=== PATIENT | female | born 1990 | race Caucasian/White ===

== ENCOUNTER 2020-06-25 11:55 | Outpatient (CLI) | payer OTHER, SELFPAY ==
[2020-06-25 12:28] LABS: Basophils Percent Auto 0.6 % (0.2-1.2); Eosinophils Absolute Auto 0.1 K/mm3 (0-0.3); Hematocrit 38.9 % (37.0-47.0); Immature Granulocyte Absolute 0.01 K/mm3 (0.00-0.031); Immature Granulocyte Percent A 0.2 % (0-0.5); Lymphocytes Absolute Auto 1.48 K/mm3 (0.9-3.2); Lymphocytes Percent Auto 28.8 % (18.3-44.2); Mean Corpuscular HGB Conc 33.4 g/dl (32-36); Mean Corpuscular Hemoglobin 31.6 pg (26-34); Mean Corpuscular Volume 94.6 fl (80-100); Mean Platelet Volume 9.9 fl (7.4-10.4); Monocytes Absolute Auto 0.5 K/mm3 (0.1-0.6); Neutrophils Absolute Auto 3.1 K/mm3 (1.3-6.7); Neutrophils Percent Auto 60.4 % (45.5-73.1); Platelet Count Result 258 k/mm3 (150-375); Red Blood Count 4.11 M/mm3 (4.2-5.4); Red Cell Distribution Width 12.8 % (11.5-14.5); White Blood Count 5.1 K/mm3 (4.5-10.0)
[2020-06-25 12:56] LABS: Beta HCG Quantitative 57.77 mIU/ML
[2020-06-25 13:20] LABS: Free T4 Free Thyroxine 1.08 ng/mL (0.78-2.19)
== END 2020-06-25 11:56 | disposition home or self-care (01) ==
LOC: ANHLAB 11:58
PROVIDERS: Visit Provider Obstetrics & Gynecology
DX: N92.6 Irregular menstruation, unspecified (principal)
CPT/HCPCS: 36415; 84146; 84439; 84443; 84702; 85025

== ENCOUNTER 2020-06-27 13:49 | Outpatient (CLI) | payer OTHER, SELFPAY ==
[2020-06-27 14:42] LABS: Beta HCG Quantitative 30.82 mIU/ML
== END 2020-06-27 13:50 | disposition home or self-care (01) ==
PROVIDERS: Visit Provider Obstetrics & Gynecology
DX: N92.6 Irregular menstruation, unspecified (principal)
CPT/HCPCS: 36415; 84702

== ENCOUNTER 2020-07-02 14:52 | Outpatient (CLI) | payer OTHER, SELFPAY ==
[2020-07-02 16:10] LABS: Beta HCG Quantitative 7.96 mIU/ML
== END 2020-07-02 14:53 | disposition home or self-care (01) ==
PROVIDERS: Visit Provider Obstetrics & Gynecology
DX: N92.6 Irregular menstruation, unspecified (principal); Z34.90 Encounter for supervision of normal pregnancy, unspecified, unspecified trimester
CPT/HCPCS: 36415; 84702; 86850; 86900; 86901

== ENCOUNTER 2020-07-06 13:35 | Outpatient (CLI) | payer OTHER, SELFPAY ==
--- NOTE | ~2020-07-06 | US_ITS ---
EXAMINATION: US pelvic complete w TV DATE: 07/06/2020 14:17 INDICATION: Irregular menstruation Comparison:No prior studies for comparison. TECHNIQUE: Multiple transabdominal and endovaginal sonographic images of the pelvis performed. FINDINGS: The uterus measures 7.3 x 3.7 x 5 cm. The endometrial complex measures 7 mm. There is a 7 m m nabothian cysts. The ovaries are not visualized. There is no free fluid in the pelvis. There are no abnormal masses seen on either side. IMPRESSION: 1. Unremarkable pelvic ultrasound. Reviewed, dictated and finalized at location B.
== END 2020-07-06 13:36 | disposition home or self-care (01) ==
PROVIDERS: Visit Provider Obstetrics & Gynecology
DX: N92.6 Irregular menstruation, unspecified (principal)
CPT/HCPCS: 76830; 76856

== ENCOUNTER 2020-07-16 17:18 | Outpatient (CLI) | payer OTHER, SELFPAY ==
[2020-07-16 18:00] LABS: Beta HCG Quantitative < 2.39 mIU/ML
== END 2020-07-16 17:19 | disposition home or self-care (01) ==
PROVIDERS: PCP Obstetrics & Gynecology; Visit Provider Obstetrics & Gynecology
DX: N92.6 Irregular menstruation, unspecified (principal)
CPT/HCPCS: 36415; 84702

== ENCOUNTER 2020-07-20 13:50 | Outpatient (CLI) | payer OTHER, SELFPAY ==
[2020-07-20 17:41] LABS: Hepatitis B Surface Antigen Negative (Negative)
[2020-07-20 17:59] LABS: Hepatitis C Virus Antibody Negative (Negative)
[2020-07-21 06:59] LABS: Rapid Plasma Reagin Non-Reactive (NonReactive)
[2020-07-23 13:01] LABS: HSV 1 IgM Screen Negative (Negative); HSV 2 IgM Screen Negative (Negative)
== END 2020-07-20 13:51 | disposition home or self-care (01) ==
LOC: ANHLAB 13:51
PROVIDERS: PCP Obstetrics & Gynecology; Visit Provider Obstetrics & Gynecology
DX: Z20.2 Contact with and (suspected) exposure to infections with a predominantly sexual mode of transmission (principal)
CPT/HCPCS: 36415; 86592; 86695; 86696; 86803; 87340

== ENCOUNTER 2021-10-12 11:31 | Emergency (ER) | payer OTHER, SELFPAY ==
[2021-10-12 11:41] VITALS: BP 131/77; PULSE 77; RESP 16; TEMP 37.1; O2SAT 98
--- NOTE | 2021-10-12 11:47 | ED.URI ---
HPI - URI/Sore Throat General Chief Complaint: Upper Respiratory Infection Stated Complaint: congestion Time Seen by Provider: 10/12/21 11:48 Source: patient, family, RN notes reviewed and old records reviewed Mode of arrival: ambulatory Limitations: no limitations History of Present Illness HPI Narrative: 31-year-old female presents to the [facility] with complaints of congestion. Patient states is been going on a couple of days. States it feels similar to when she had Covid 3 weeks ago. Denies fevers. Reports taking multiple [id number]-[id number] products. Related Data Allergies Allergy/AdvReac Type Severity Reaction Status Date / Time minocycline Allergy Severe ANAPHALACTI Verified 10/12/21 11:34 C Review of Systems Review of Systems: All systems reviewed & are unremarkable except as noted in HPI and below Constitutional: Constitutional: Reports no additional constitutional complaints, Denies chills, Denies fever(s) and Denies headache(s) Eyes: Eyes: Reports no additional eye complaints ENT: Reports as per HPI, Denies vertigo, Denies dizziness, Denies headache(s), Reports nasal congestion and Reports sore throat Cardiovascular: Cardiovascular: Reports no additional cardiovascular complaints, Denies chest pain, Denies syncope, Denies rapid heart rate and Denies dyspnea Respiratory: Respiratory: Reports no additional respiratory complaints, Denies cough, Denies dyspnea and Denies wheezing Gastrointestinal: Gastrointestinal: Reports no additional gastrointestinal complaints, Denies abdominal pain, Denies diarrhea, Denies nausea and Denies vomiting Musculoskeletal: Musculoskeletal: Reports no additional musculoskeletal complaints and Denies numbness Integumentary/Breasts: Skin/Breast: Reports system reviewed and no additional complaints, except as docu Neurologic: Reports system reviewed and no additional complaints, except as documented, Denies vertigo, Denies dizziness, Denies syncope, Denies headache(s), Denies focal weakness and Denies numbness Psychiatric: Psychiatric: Reports no additional psychiatric complaints Allergic/Immunologic: Allergic/Immunologic: Reports no additional allergic/immunologic complaints and Denies wheezing PMFSH Past Medical History Medical History (Updated 10/12/21 @ 12:19 by Agnelica Chacon) 2010 Asthma Depression Irregular menses Surgical History Surgical History H/O knee surgery H/O rhinoplasty H/O wisdom tooth extraction H/O wrist surgery Family History Family History Grandparent Breast cancer Diabetes mellitus Acute myocardial infarction Social History Social History Smoking status: Former smoker Smoking end date: 03/26/17 Alcohol intake: current Substance use: former Substance use type: heroin Comments At the time of my signature, I reviewed and agree with the nursing past medical, surgical, social, and family history. There is no relevant family history pertinent to the patient complaint. Exam Const: General: cooperative, healthy appearing, no acute distress, well developed and alert Nutritional Appearance: well nourished Orientation/consciousness: patient oriented x3 Limitations: no limitations HENMT: Head: normal to inspection Ears: external ears normal, TM's normal bilaterally and EAC's normal General nose exam: Normal external nose present and Normal nasal mucous membranes and turbinates present Face and sinus: normal facial exam Mouth: Yes Normal oral and palatal mucosa present Throat: tonsils normal, uvula midline, posterior oropharynx abnormal cobblestoning; no erythema and no exudates, postnasal drainage and no uvular edema Eyes: Conjunctivae: conjunctivae normal Pupils: Equal, round and reactive pupils present Neck: Neck: normal visual inspection, no lymphadenopathy and no meningeal sig
== END 2021-10-12 12:25 | disposition home or self-care (01) ==
PROVIDERS: Emergency Provider Nurse Practitioner
DX: R09.82 Postnasal drip (principal); J06.9 Acute upper respiratory infection, unspecified; Z87.891 Personal history of nicotine dependence; J45.909 Unspecified asthma, uncomplicated; Z86.16 Personal history of COVID-19
CPT/HCPCS: 87081; 87880; 99213; G0463

== ENCOUNTER 2021-12-08 17:38 | Emergency (ER) | payer OTHER, SELFPAY ==
[2021-12-08 17:45] VITALS: BP 114/70; PULSE 87; RESP 16; TEMP 36.9; O2SAT 100
--- NOTE | 2021-12-08 18:15 | ED.URI ---
HPI - URI/Sore Throat General Chief Complaint: Upper Respiratory Infection Stated Complaint: uri Time Seen by Provider: 12/08/21 18:15 Source: patient and RN notes reviewed Mode of arrival: ambulatory Limitations: no limitations History of Present Illness HPI Narrative: 31-year-old female presented for complaint of sinus pressure, congestion for 1 month and left ear pain for about 2 days. Endorses thick green nasal drainage and sore throat. She is taking lhai-ajj-unhghko nasal spray and allergy medication. History of tinnitus. Denies headache, dizziness, nausea, vomiting, diarrhea, fever or chills. Patient is not vaccinated for flu or Covid. Denies sick contacts. MD elicited complaint: nasal congestion Related Data Allergies Allergy/AdvReac Type Severity Reaction Status Date / Time minocycline Allergy Severe ANAPHALACTI Verified 12/08/21 17:43 C Review of Systems Review of Systems: CONSTITUTIONAL: Denies malaise, chills, sweats, fever EYES: Denies visual changes, redness, or discharge ENT: Reports rhinorrhea, congestion, sinus pain, otalgia, sore throat CARDIOVASCULAR: Denies chest pain, palpitations, edema RESPIRATORY: Reports cough, post nasal drainage. Denies dyspnea GASTROINTESTINAL: Denies abdominal pain, nausea, vomiting, diarrhea SKIN: Denies rash or itching MUSCULOSKELETAL: Denies myalgia NEUROLOGIC: Denies headache PMFSH Past Medical History Medical History (Updated 12/08/21 @ 18:25 by Herminia Pandya APRN) 2010 Asthma Depression Irregular menses Surgical History Surgical History H/O knee surgery H/O rhinoplasty H/O wisdom tooth extraction H/O wrist surgery Family History Family History Grandparent Breast cancer Diabetes mellitus Acute myocardial infarction Social History Social History Smoking status: Former smoker Smoking end date: 03/26/17 Alcohol intake: current Substance use: former Substance use type: heroin Exam Narrative: GENERAL: Ill-appearing, nontoxic HEAD: Normocephalic EYES: conjunctivae clear ENT: Mucous membranes moist. TM pearly bran with dull light reflex bilaterally; no tragal tenderness. Oropharynx erythematous without lesions or exudate, no drooling, no hoarseness, no trismus, uvula midline. NECK: Supple. No lymphadenopathy CHEST: Clear to auscultation, breath sounds equal. No wheezing, rhonchi, rales, or stridor. No respiratory distress, speaks in full sentences. HEART: Regular rate and rhythm. No murmur heard. SKIN: Warm, dry, no rash. NEURO: Alert and oriented x3. PSYCH: Normal mood and affect Course Course Emergency Course: Patient is aware of diagnosis, understands and agrees to treatment plan. Anticipatory guidance given. Patient agrees to follow-up as directed and is aware of reasons to seek care at the emergency department. Portions of this record may have been created with voice recognition software Level of Care: Express Care Visit Vital Signs Vital signs: Vital Signs Temperature 98.5 F 12/08/21 17:45 Pulse Rate 87 12/08/21 17:45 Respiratory Rate 16 12/08/21 17:45 Blood Pressure 114/70 12/08/21 17:45 Pulse Oximetry 100 12/08/21 17:45 Temperature 98.5 F 12/08/21 17:45 Pulse Rate 87 12/08/21 17:45 Respiratory Rate 16 12/08/21 17:45 Blood Pressure 114/70 12/08/21 17:45 Pulse Oximetry 100 12/08/21 17:45 reviewed MDM - URI/Sore Throat MDM Narrative Medical decision making narrative: Sx c/w sinus infection. Appropriate for outpt treatment and f/u. Differential Diagnosis Differential diagnosis: Likely upper respiratory infection, sinusitis and viral infection Discharge Plan Discharge Clinical Impression: Sinusitis Qualifiers: Sinusitis location: unspecified location Chronicity: acute Recurrence: non-recurre
== END 2021-12-08 18:28 | disposition home or self-care (01) ==
PROVIDERS: Emergency Provider Nurse Practitioner Family
DX: J01.90 Acute sinusitis, unspecified (principal); Z87.891 Personal history of nicotine dependence; J45.909 Unspecified asthma, uncomplicated
CPT/HCPCS: 99213; G0463

== ENCOUNTER 2021-12-24 14:06 | Emergency (ER) | payer OTHER, SELFPAY ==
[2021-12-24 14:14] VITALS: BP 124/74; PULSE 64; RESP 16; TEMP 36.6; O2SAT 100
--- NOTE | 2021-12-24 14:16 | ED.EAR ---
HPI - Ear Problem General Chief complaint: Ear Stated complaint: Dizzy,Ear Pain Time Seen by Provider: 12/24/21 14:16 Source: patient Mode of arrival: ambulatory Limitations: no limitations History of Present Illness HPI Narrative: 31-year-old female presents with complaint of sinus congestion, sinus headaches, sinus pressure, sore throat for several weeks. Taking Flonase daily. Was seen here several weeks ago and given Augmentin with no relief of symptoms. States congestion as the setting there . Has had left ear pain for several days. Today left ear pain became worse with dizziness and nausea. All systems reviewed and negative except as noted above. Related Data Allergies Allergy/AdvReac Type Severity Reaction Status Date / Time minocycline Allergy Severe ANAPHALACTI Verified 12/24/21 14:19 C Review of Systems Review of Systems: CONSTITUTIONAL: Denies fever, chills, or sweats. EYES: Denies visual changes, redness, or discharge. ENT: Reports rhinorrhea, congestion, sore throat, or otalgia. CARDIOVASCULAR: Denies chest pain, palpitations, or edema. RESPIRATORY: Denies cough or dyspnea. GASTROINTESTINAL: Denies abdominal pain, nausea, vomiting, or diarrhea. GENITOURINARY: Denies dysuria or hematuria. SKIN: Denies rash or itching. MUSCULOSKELETAL: Denies back pain, joint pain, or myalgia. NEUROLOGIC: Denies headache, numbness, or weakness. PSYCHIATRIC: Denies anxiety or depression. All other systems reviewed are negative, except as documented in HPI. [facility] Past Medical History Medical History (Updated 12/24/21 @ 14:33 by Susan Vasquez NP) 2010 Asthma Depression Irregular menses Surgical History Surgical History H/O knee surgery H/O rhinoplasty H/O wisdom tooth extraction H/O wrist surgery Family History Family History Grandparent Breast cancer Diabetes mellitus Acute myocardial infarction Social History Social History Smoking status: Former smoker Smoking end date: 03/26/17 Alcohol intake: current Substance use: former Substance use type: heroin Comments At time of signature, agree with nursing past medical, surgical, social and family history. There is no relevant family history pertinent to the presenting complaint. Exam Narrative: GENERAL: This is a well-nourished, well-developed patient, in no apparent distress. HEAD: normocephalic, atraumatic. EYES: PERRL. Sclera clear/white. Vision is grossly intact. EARS: External ears normal, auditory canals clear and without drainage. Fluid to bilateral TMs, worse to left. TMs opaque with dull light reflex. NOSE: External nose normal. Erythema to both nares, yellow congestion. Maxillary sinus tenderness. THROAT: Mucous membranes moist, erythema to posterior pharynx with clear post nasal drainage. NECK: Neck supple, non-tender without lymphadenopathy, masses or thyromegaly. CARDIOVASCULAR: Regular rate and rhythm without murmurs, gallops, or rubs. RESPIRATORY: Clear to auscultation. Breath sounds equal bilaterally. No wheezes, rales, or rhonchi. SKIN: warm, Dry, intact with no suspicious lesions or rash, good texture and turgor. NEURO: awake, alert, and oriented to person, place and time. There were no obvious focal neurologic abnormalities. EXTREMITIES: Normal range of motion to all extremities. Course Course Level of Care: Express Care Visit Vital Signs Vital signs: Vital Signs Temperature 36.6 C 12/24/21 14:14 Pulse Rate 64 12/24/21 14:14 Respiratory Rate 16 12/24/21 14:14 Blood Pressure 124/74 12/24/21 14:14 Pulse Oximetry 100 12/24/21 14:14 Temperature 36.6 C 12/24/21 14:14 Pulse Rate 64 12/24/21 14:14 Respiratory Rate 16 12/24/21 14:14 Blood Pressure 124/74 12/24/21 14:14 Pulse Oximetry 100 12/24/21
== END 2021-12-24 14:38 | disposition home or self-care (01) ==
PROVIDERS: Emergency Provider Nurse Practitioner Family
DX: J01.90 Acute sinusitis, unspecified (principal); H65.02 Acute serous otitis media, left ear; J45.909 Unspecified asthma, uncomplicated; Z87.891 Personal history of nicotine dependence
CPT/HCPCS: 99213; G0463

== ENCOUNTER 2022-05-30 12:54 | Outpatient (CLI) | payer OTHER, SELFPAY ==
--- NOTE | ~2022-05-30 | XR_ITS ---
EXAM: XR cervical spine min 6V DATE: 05/30/2022 13:46 HISTORY: R20.0 - Anesthesia of skin . COMPARISON: None available. FINDINGS: Craniocervical association and atlantoaxial joint are normal. No prevertebral soft tissue swelling. Straightening of the mid and lower cervical spine as can occur with positioning or muscle s pasm. 1 mm and 2 mm anterolistheses of C4 on C5 and C5 on C6, respectively, that reduce in neutral an d extension. Neural foramina are widely patent bilaterally Vertebral bodies are aligned. Vertebral blade dy heights and disc spaces are maintained. Normal facets and posterior elements. IMPRESSION: Mild, dynamic grade 1 anterolistheses of C4-5 and C5-6. Otherwise normal cervical spine r adiograph findings. Reviewed, dictated and finalized at location K. IMPRESSION: Mild, dynamic grade 1 anterolistheses of C4-5 and C5-6. Otherwise n ormal cervical spine radiograph findings.
--- NOTE | ~2022-05-30 | XR_ITS ---
EXAM: XR knee RT min 4V, XR knee LT min 4V DATE: 05/30/2022 13:46 HISTORY: M25.561 - Pain in right and left knees. COMPARISON: None available. FINDINGS: Normal mineralization. No fracture or dislocation. No lytic or blastic lesion. Mild bilate ral medial joint space narrowing. Bilateral tricompartmental osteophytosis. No erosion or periosteal change. Soft tissues within normal limits. Small volume bilateral joint effusions. IMPRESSION: Mild tricompartmental osteoarthritis of the knees. Reviewed, dictated and finalized at location K. IMPRESSION: Mild tricompartmental osteoarthritis of the knees.
== END 2022-05-30 12:55 | disposition home or self-care (01) ==
PROVIDERS: PCP Family Medicine; Visit Provider Family Medicine
DX: R20.0 Anesthesia of skin (principal); R20.2 Paresthesia of skin; M17.0 Bilateral primary osteoarthritis of knee
CPT/HCPCS: 72052; 73564

== ENCOUNTER 2022-09-15 09:57 | Outpatient (CLI) | payer OTHER, MEDICAID, SELFPAY ==
[2022-09-15 10:42] LABS: Alanine Aminotransferase 24 U/L (6-35); Albumin Level 4.6 g/dL (3.5-5.1); Alkaline Phosphatase 65 U/L (38-126); Anion Gap 8 mmol/L (8-16); Aspartate Amino Transferase 30 U/L (14-36); Bilirubin,Total 1.2 mg/dL (0.2-1.3); Blood Urea Nitrogen 20 mg/dL (7-17); Calcium 8.9 mg/dL (8.4-10.2); Carbon Dioxide 23 mmol/L (22-30); Chloride 104 mmol/L (98-107); Estimated Glomerular Filt Rate > 60; Glucose 90 mg/dL (65-110); Potassium 4.1 mmol/L (3.4-5.0); Sodium 135 mmol/L (137-145)
--- NOTE | 2022-09-15 11:00 | NEURO_ITS ---
Impression: # Complains of pain and numbness of upper extremities. # No Carpal Tunnel Syndrome or ulnar neuropathy. # Normal needle/EMG exam with no denervation or myotonic changes. # Clinical correlation recommended. Motor Nerve Conduction Upper Extremities Median Nerve Conduction Velocity (m/sec) Terminal Latency (msec) Response Voltage(mV) Elbow-Wrist Wrist Elbow Wrist Right 61 3.4 4 4 Left 59 3.4 6 5 Ulnar Nerve Conduction Velocity (m/sec) Terminal Latency (msec) Response Voltage(mV) Above Elbow Below Elbow Wrist Above Elbow Below Elbow Wrist Right 58 2.3 4 5 Left 60 2.3 4 5 F-Wave Latency Median (ms) Ulnar (ms) Right 28.0 29.5 Left 28.2 29.0 Sensory Nerve Conduction Upper Extremities Median Nerve Stimulation Terminal Latency (msec) Wrist/Digit Response Voltage (uV) Wrist Right 2.7/2.8 62/79 Left 3.4/3.4 62/67 Ulnar Nerve Stimulation Terminal Latency (msec) Wrist/Digit Response Voltage (uV) Wrist Right 2.1 74 Left 2.6 53 Radial Nerve Terminal Latency (msec) Response Voltage(mV) Right 2.1 31 Left 2.4 20 Left Right Muscles Examined Fibrillation Fasciculation Scarcity Voltage Duration Left Right Left Right Left Right Left Right Left Right X X Deltoid X X Biceps x X Brachioradialis X X Triceps X X Pronator Teres X X Ext Indicis X X Ext Digitorum X X Abd Poll Brev X X 1st Dorsal Interosseus Abd Dig Min MTDD
[2022-09-15 11:14] LABS: Hematocrit 40.7 % (37.0-47.0); Hemoglobin 13.6 g/dL (12.0-15.0); Mean Corpuscular HGB Conc 33.4 g/dl (32-36); Mean Corpuscular Volume 92.7 fl (80-100); Mean Platelet Volume 10.7 fl (7.4-10.4); Platelet Count Result 266 k/mm3 (150-375); Red Blood Count 4.39 M/mm3 (4.2-5.4); Red Cell Distribution Width 13.5 % (11.5-14.5); White Blood Count 7.2 K/mm3 (4.5-10.0)
== END 2022-09-15 09:58 | disposition home or self-care (01) ==
PROVIDERS: PCP Family Medicine; Visit Provider Family Medicine
DX: M25.561 Pain in right knee (principal); M25.562 Pain in left knee; M54.2 Cervicalgia; N92.6 Irregular menstruation, unspecified; R20.0 Anesthesia of skin; R20.2 Paresthesia of skin; Z79.899 Other long term (current) drug therapy
CPT/HCPCS: 36415; 80053; 85027; 95886; 95911

== ENCOUNTER 2022-09-22 11:28 | Outpatient (CLI) | payer OTHER, MEDICAID, SELFPAY ==
[2022-09-22 21:06] LABS: Thyroid Stimulating Hormone 0.941 uIU/mL (0.465-4.680)
== END 2022-09-22 11:29 | disposition home or self-care (01) ==
LOC: ANHGOSHLAB 11:30
PROVIDERS: PCP Family Medicine; Visit Provider Family Medicine
DX: L65.9 Nonscarring hair loss, unspecified (principal); Z79.899 Other long term (current) drug therapy; R23.2 Flushing
CPT/HCPCS: 36415; 84443

== ENCOUNTER 2023-01-24 13:34 | Emergency (ER) | payer OTHER, MEDICAID, SELFPAY ==
[2023-01-24 13:41] VITALS: BP 126/68; PULSE 89; RESP 16; TEMP 36.9; O2SAT 99
--- NOTE | 2023-01-24 13:42 | ED.FEMALEGU ---
HPI - Female Genitourinary General Chief complaint: Vaginal Bleeding Stated complaint: Vaginal Bleeding Time Seen by Provider: 01/24/23 13:43 Source: patient, RN notes reviewed and old records reviewed Mode of arrival: ambulatory Limitations: no limitations History of Present Illness HPI Narrative: 33-year-old female presents to the [facility] with concerns increased clotting and heavier then normal period. States that over the last couple of days, Monday, that she has had increased cramping and weakness. States that her periods normally last 5 days. Does not use pads, uses a flex disk. states that today she has needed to empty it every 1-2 hours. she is also seeing large clots, not her normal. States that she is not sexually active. Denies any chances of or STDs. States that she had history of the same in the past. 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, per medical record June of 2020 States that she has had to call into work the last couple of days Taking Naproxen elicited complaint: vaginal bleeding Onset (ago): day(s) (3) Related Data Home Medications Medication Instructions Recorded Confirmed ferrous sulfate 27 mg iron tablet 27 mg PO DAILY 09/22/22 09/22/22 gabapentin 100 mg capsule 100 mg PO BID 09/22/22 09/22/22 Allergies Allergy/AdvReac Type Severity Reaction Status Date / Time minocycline Allergy Severe ANAPHALACTI Verified 01/24/23 14:00 C Review of Systems Review of Systems: All systems reviewed & are unremarkable except as noted in HPI and below Constitutional: Constitutional: Reports no additional constitutional complaints Eyes: Eyes: Reports no additional eye complaints ENT: Reports system reviewed and no additional complaints, except as documented Cardiovascular: Cardiovascular: Reports no additional cardiovascular complaints, Denies chest pain and Denies dyspnea Respiratory: Respiratory: Reports no additional respiratory complaints, Denies chest congestion, Denies cough and Denies dyspnea Gastrointestinal: Gastrointestinal: Reports no additional gastrointestinal complaints, Denies abdominal pain, Denies nausea and Denies vomiting Genitourinary: Genitourinary: Reports as per HPI and Reports menorrhagia Musculoskeletal: Musculoskeletal: Reports no additional musculoskeletal complaints Integumentary/Breasts: Skin/Breast: Reports system reviewed and no additional complaints, except as docu Neurologic: Reports system reviewed and no additional complaints, except as documented Psychiatric: Psychiatric: Reports no additional psychiatric complaints Allergic/Immunologic: Allergic/Immunologic: Reports no additional allergic/immunologic complaints [facility] Past Medical History Medical History 2010 Asthma Depression Irregular menses Surgical History Surgical History H/O knee surgery H/O rhinoplasty H/O wisdom tooth extraction H/O wrist surgery Family History Family History Grandparent Breast cancer Diabetes mellitus Acute myocardial infarction Social History Social History Smoking status: Current every day smoker Tobacco type: e-cigarettes/vaping Smoking end date: 03/26/17 Alcohol intake: current Substance use: current Substance use type: marijuana and heroin Other substance usage details: Heroin is former Lack of Transportation: No Lack of Food: Never True Current Housing: I Have Housing Concerned About Future Housing: No Difficulty Paying Gas/Electric Bills: No Difficulty Paying for Meds: No Currently Unemployed: No Education: Associate Degree Difficulty w/ Childcare or Family Care: No Living arrangements: with family Occupation/Education: occupation Gender identity (if verbalized by th
== END 2023-01-24 14:06 | disposition home or self-care (01) ==
PROVIDERS: Emergency Provider Nurse Practitioner; PCP Family Medicine
DX: N93.9 Abnormal uterine and vaginal bleeding, unspecified (principal); F12.90 Cannabis use, unspecified, uncomplicated; F11.90 Opioid use, unspecified, uncomplicated; J45.909 Unspecified asthma, uncomplicated
CPT/HCPCS: 99211; G0463

== ENCOUNTER 2023-01-26 10:40 | Outpatient (CLI) | payer OTHER, MEDICAID, SELFPAY ==
[2023-01-26 19:09] LABS: Iron 128 ug/dL (37-170)
[2023-01-26 19:18] LABS: Percent Iron Saturation 36 % (20-50)
[2023-01-26 19:46] LABS: Hematocrit 41.2 % (37.0-47.0); Hemoglobin 13.7 g/dL (12.0-15.0); Mean Corpuscular HGB Conc 33.3 g/dl (32-36); Mean Corpuscular Volume 93.2 fl (80-100); Platelet Count Result 304 k/mm3 (150-375); Red Blood Count 4.42 M/mm3 (4.2-5.4); Red Cell Distribution Width 12.7 % (11.5-14.5); White Blood Count 5.3 K/mm3 (4.5-10.0)
== END 2023-01-26 10:41 | disposition home or self-care (01) ==
LOC: ANHGOSHLAB 10:41
PROVIDERS: PCP Family Medicine; Visit Provider Family Medicine
DX: N92.6 Irregular menstruation, unspecified (principal); D64.9 Anemia, unspecified; Z79.899 Other long term (current) drug therapy
CPT/HCPCS: 36415; 82728; 83540; 83550; 84443; 85027

== ENCOUNTER 2023-08-03 11:11 | Outpatient (CLI) | payer OTHER, MEDICAID, SELFPAY ==
[2023-08-03 19:20] LABS: Alanine Aminotransferase 16 U/L (6-35); Albumin Level 4.7 g/dL (3.5-5.1); Alkaline Phosphatase 66 U/L (38-126); Anion Gap 12 mmol/L (8-16); Aspartate Amino Transferase 27 U/L (14-36); Bilirubin,Total 0.9 mg/dL (0.2-1.3); Blood Urea Nitrogen 19 mg/dL (7-17); Calcium 9.5 mg/dL (8.4-10.2); Carbon Dioxide 24 mmol/L (22-30); Chloride 102 mmol/L (98-107); Estimated Glomerular Filt Rate > 60; Glucose 80 mg/dL (65-110); Sodium 138 mmol/L (137-145)
[2023-08-03 19:36] LABS: Iron 132 ug/dL (37-170)
[2023-08-03 19:49] LABS: Hemoglobin 12.9 g/dL (12.0-15.0); Mean Corpuscular HGB Conc 32.3 g/dl (32-36); Mean Corpuscular Volume 96.2 fl (80-100); Platelet Count Result 244 k/mm3 (150-375); Red Blood Count 4.16 M/mm3 (4.2-5.4); Red Cell Distribution Width 13.4 % (11.5-14.5); White Blood Count 7.4 K/mm3 (4.5-10.0)
[2023-08-03 19:52] LABS: Percent Iron Saturation 39 % (20-50)
== END 2023-08-03 11:12 | disposition home or self-care (01) ==
LOC: ANHGOSHLAB 11:13
PROVIDERS: PCP Family Medicine; Visit Provider Family Medicine
DX: D64.9 Anemia, unspecified (principal); Z79.899 Other long term (current) drug therapy; N92.6 Irregular menstruation, unspecified; R42 Dizziness and giddiness
CPT/HCPCS: 36415; 80053; 82728; 83540; 83550; 84443; 85027

== ENCOUNTER 2025-06-23 17:15 | Emergency (ER) | payer OTHER, SELFPAY ==
[2025-06-23 17:27] VITALS: BP 104/67; PULSE 76; RESP 16; TEMP 36.6; O2SAT 99
--- NOTE | 2025-06-23 17:48 | ED_ITS ---
HPI - Ear Problem General Chief complaint: Ear Stated complaint: L ear pain Time Seen by Provider: 06/23/25 17:48 Source: patient, RN notes reviewed and old records reviewed Mode of arrival: ambulatory Limitations: no limitations History of Present Illness HPI Narrative: 35-year-old female presents to the [facility] with complaints of a sore throat, left ear pain and lymph node swelling that has a large early increased for the last week. Denies fevers. No difficulty breathing or swallowing. Denies chest pain Related Data Allergies Allergy/AdvReac Type Severity Reaction Status Date / Time minocycline Allergy Severe ANAPHALACTI Verified 06/23/25 17:50 C Review of Systems Review of Systems: All systems reviewed & are unremarkable except as noted in HPI and below Constitutional: Constitutional: Reports no additional constitutional complaints ENT: Reports as per HPI, Reports otalgia and Reports sore throat Cardiovascular: Cardiovascular: Reports no additional cardiovascular complaints, Denies chest pain and Denies dyspnea Respiratory: Respiratory: Reports no additional respiratory complaints, Denies chest congestion, Denies cough and Denies dyspnea Musculoskeletal: Musculoskeletal: Reports no additional musculoskeletal complaints Integumentary/Breasts: Skin/Breast: Reports system reviewed and no additional complaints, except as docu PMFSH Past Medical History Medical History Irregular menses 2010 Asthma Depression Surgical History Surgical History H/O wrist surgery H/O knee surgery H/O rhinoplasty H/O wisdom tooth extraction Family History Family History Grandparent Breast cancer Diabetes mellitus Acute myocardial infarction Social History Social History Smoking status: Current every day smoker Tobacco type: e-cigarettes/vaping Smoking end date: 03/26/17 Alcohol intake: current Substance use: current Substance use type: marijuana and heroin Other substance usage details: Heroin is former Lack of Transportation: No Lack of Food: Never True Current Housing: I Have Housing Concerned About Future Housing: No Difficulty Paying Gas/Electric Bills: No Difficulty Paying for Meds: No Currently Unemployed: No Education: Associate Degree Difficulty w/ Childcare or Family Care: No Living arrangements: with family Occupation/Education: occupation Gender identity (if verbalized by the patient): Female Agree to blood products: Yes Comments At the time of my signature, I reviewed and agree with the nursing past medical, surgical, social, and family history. There is no relevant family history pertinent to the patient complaint. Exam Const: General: cooperative, healthy appearing, comfortable, no acute distress, well developed, alert and well nourished Nutritional Appearance: well nourished Orientation/consciousness: patient oriented x3 Limitations: no limitations HENMT: Head: normal to inspection Ears: hearing grossly normal bilaterally, external ears normal, TM's normal bilaterally, EAC's normal, mastoids normal and no periauricular adenopathy Mouth: Yes Normal oral and palatal mucosa present, Yes lip normal, Yes tongue normal and Yes moist mucous membranes Throat: uvula midline, posterior oropharynx abnormal erythema and no uvular edema Eyes: General: appearance normal, both eyes and all related structures Alignment and Position: alignment normal Neck: Neck: normal visual inspection, full ROM, no meningeal signs and lymphadenopathy (Bilateral submandibular) Chest: Chest palpation & inspection: normal inspection of the chest Resp: Effort & Inspection: normal respiratory effort and able to speak in complete sentences Auscultation: clear to auscultation bilaterally, no crackles, no rales, no rhonchi and no wheezes Cardio: Rate: regular rate Skin: General skin exam: normal color and no rashes or lesions noted Neuro: General: patient oriented x3, gait normal, moves all extremities and no meningeal signs Cognition (Neuro): normal cognition Speech: normal speech Gait exam (Neuro): Normal gait present Extrem: General: normal to inspection, full ROM, capillary refill normal and normal gait Psych: Appearance: grossly normal and well kempt Mental Status: mental st atus grossly normal Speech and movement: Normal speech and movement present and Clear speech present Affect: normal affect Attitude: cooperative Course Course Level of Care: Express Care Visit Vital Signs Vital signs: Vital Signs Temperature 97.9 F 06/23/25 17:27 Pulse Rate 76 06/23/25 17:27 Respiratory Rate 16 06/23/25 17:27 Blood Pressure 104/67 06/23/25 17:27 Pulse Oximetry 99 06/23/25 17:27 Oxygen Delivery Room Air 06/23/25 17:27 Temperature 97.9 F 06/23/25 17:27 Pulse Rate 76 06/23/25 17:27 Respiratory Rate 16 06/23/25 17:27 Blood Pressure 104/67 06/23/25 17:27 Pulse Oximetry 99 06/23/25 17:27 Oxygen Delivery Room Air 06/23/25 17:27 Reviewed Medical Decision Making MDM Narrative Medical decision making narrative: Patient sitting comfortably in exam. Patient is nontoxic, vitals stable. Patient presents week history of left ear pain sore throat. Ears without acute findings. Erythema noted to the posterior pharynx with lymphadenopathy. P atient's strep test is positive. Patient is appropriate for outpatient treatment with close follow-up. Discharge instructions reviewed with patient, as well as provided in writing per nursing staff. The instructions also include specific and strict return/GO TO THE ER as well as f/u information. All questions have been answered, and the patient deny any further questions with discharge and discharge plan. Some parts of this dictation were generated by voice recognition software and may contain typographical and/or grammatical inaccuracies. Differential Diagnosis Differential Diagnosis: Strep, otitis media, URI, viral Medical Records Medical records reviewed: Yes I reviewed the external patient's medical records. Vital Signs Vital Signs: Vital Signs Temperature 97.9 F 06/23/25 17:27 Pulse Rate 76 06/23/25 17:27 Respiratory Rate 16 06/23/25 17:27 Blood Pressure 104/67 06/23/25 17:27 Pulse Oximetry 99 06/23/25 17:27 Oxygen Delivery Room Air 06/23/25 17:27 Temperature 97.9 F 06/23/25 17:27 Pulse Rate 76 06/23/25 17:27 Respiratory Rate 16 06/23/25 17:27 Blood Pressure 104/67 06/23/25 17:27 Pulse Oximetry 99 06/23/25 17:27 Oxygen Delivery Room Air 06/23/25 17:27 Reviewed Lab Data Lab results reviewed: Yes I reviewed the patient's lab results. Labs: Lab Results 06/23/25 Range/Units 17:56 POC Grp A Strep Screen Positive (Negative) Reviewed Critical Care Time Critical Care Time Critical Care Time: No Discharge Plan Discharge Clinical Impression: Strep throat Patient Disposition: Home Condition: Stable Instructions: Antibiotic Form, Strep Throat (ED) Additional Instructions: After 24-48 hours on antibiotics, Throw the toothbrush away, start using a new one. Please be sure to wash bed linens especially pillow cases. Repeat once you finish the antibiotics. Do not share drinks. Take Motrin alternating with Tylenol for pain and fever alternating every 4 hours. Increase fluids, avoid caffeine. Give plenty of water, juice, Gatorade, Pedialyte, ice pops in Jell-O Follow up with Primary provider if not getting better this week For new or worsening symptoms go directly to the emergency room Patient Language: Australian Prescriptions: New amoxicillin 875 mg tablet 875 mg PO Q12H Qty: 20 0RF No Action escitalopram oxalate 20 mg tablet 20 mg PO DAILY Qty: 30 0RF Rx Instructions: no further refills until seen. please call the office for a an appointment. Follow-up/Referrals: Liz,Paul Victoria MD [Primary Care Provider, Unknown] - 2 Weeks Stand Alone Forms: Work/School Release IP Time of Disposition: 17:55
[2025-06-23 17:58] LABS: EDSTREPNEGPOS1 Positive (Negative)
== END 2025-06-23 18:00 | disposition home or self-care (01) ==
PROVIDERS: Emergency Provider Nurse Practitioner; PCP Family Medicine
DX: J02.0 Streptococcal pharyngitis (principal); F12.90 Cannabis use, unspecified, uncomplicated; J45.909 Unspecified asthma, uncomplicated; F32.A Depression, unspecified; Z87.891 Personal history of nicotine dependence
CPT/HCPCS: 87880; 99213; G0463